=== PATIENT | female | born 1935 | race Caucasian/White ===

== ENCOUNTER 2016-10-24 08:49 | Observation (INO) | payer MEDICARE ==
[~2016-10-24] VITALS: Ht 160 cm; Wt 67.2 kg
[2016-10-24] VITALS (10 sets, daily range): BP systolic 119–186; BP diastolic 63–81; PULSE 64–80; RESP 14–18; O2SAT 93–98
[~2016-10-24 08:49] MED LIST: Aspirin-Expunged Drug, Do Not Renew! PO; DOCU-41 PO; HYDR-3797 PO; OXYC1TAB24 PO
--- NOTE | 2016-10-24 09:09 | ED.REPORT ---
HPI-Trauma Minor / Fall Date of Service Oct 24, 2016 ED Provider: Titus Melchor MD Pt is a healthy 81 y/o female presenting to the ED with her daughter due to mechanical ground level fall which occurred this morning. The patient was doing step aerobics and slipped causing her to fall backwards onto some weights on her left side mildly hitting her head. There were no preceding symptoms to the fall. Her complaints at this time include left rib pain, left hip pain, and mild left-sided headache. She describes her pain as a 5/10 non-radiating ache which is worse with movement and breathing. She denies change in LOC, fever, chills, neck pain, extremity pain, nausea, vomiting, abdominal pain, focal numbness/weakness, vision changes, chest pain, palpitations. She is unsure of her TDAP status. Nursing Notes Stated Complaint: HEAD INJURY Chief Complaint: Head, Face, Neck Trauma Nursing Notes Reviewed: Yes Allergies: Coded Allergies: No Known Drug Allergies (Verified Allergy, Unknown, 10/24/16) Scheduled Calcium Citrate (Calcium Citrate) 250 Mg Tablet 1,000 MG PO DAILY Cholecalciferol (Vitamin D3) (Vitamin D3) 2,000 Unit Capsule 2,000 UNIT PO DAILY Multivitamin (Once Daily) 1 Each Tablet 1 EACH PO DAILY Scheduled PRN diphenhydrAMINE HCl (Benadryl) 25 Mg Capsule 25 MG PO HS PRN PRN General Time Seen by MD: 09:01 Chief Complaint Fall Hx Obtained From: Patient Arrived By: Walk-in Onset Occurred: Just prior to arrival Symptom Duration: Since onset Caused by: Fall on ground Location: Chest Head Hip left Quality: Aching Severity: Current: Mild Severity: Maximum: Moderate Exacerbated by: Movement, Deep breath Context: Immunizations Tetanus not up to date (unknown) Recent Healthcare: No recent doctor visit, No recent hospitalization Similar Sx Previous: No Past Medical History Past Medical History None Past Surgical History Reports: Tonsillectomy Reports: Knee replacement Smoking History Never Smoker Social History Alcohol Use: "Social" Drug Use: Denies drug use Ambulatory Status Independent Review of Systems Constitutional: Denies: Chills, Fever Eyes: Denies: Blurred bilateral Ears / Nose / Throat: Denies: Sore throat Respiratory: Denies: Non-productive cough, Shortness of breath Musculoskeletal: Denies: Extremity pain Skin: Denies Itching Neurologic: Reports: Headache, Denies: Change LOC, Focal weakness, Numbness, Syncope Complete sys rev & neg: except as marked. Cardiovascular: Reports: Chest pain (rib) GI: Denies: Abdominal pain, Nausea, Vomiting Female: Denies: Dysuria Hematologic: Denies Bruising Endocrine: Denies: Polyuria Allergy / Immune: Denies: Itching Psychiatric: Denies: Change mental status Physical Exam General: Airway patent, GCS of 15 --- eyes (4), verbal (5), motor (6), NAD HEENT: Right eye normal with pupils 4-3 and briskly reactive Left eye normal with pupils 4-3 and briskly reactive Left tympanic membrane normal, right tympanic membrane normal Midface stable, no malocclusion No nasal septal hematoma 0.5 cm laceration to the left parietal scalp which is hemostatic Neck: nontender, trachea midline, c-collar in place Lungs: Clear to auscultation bilaterally, normal work of breathing Chest: Stable with tenderness to palpation of left lower aspect of ribs, no crepitus. No ecchymosis. Cardiac: Regular rate and rhythm Abdomen: Soft, diffuse left-sided abdominal tenderness, non-distended. No ecchymosis. Back: No bruising, tenderness, or step-offs : No saddle anesthesia Pelvis: Stable Skin: Warm and well perfused Extremities: Left upper extremity grossly normal, no deformity. Right upper extremity grossly normal, no deformity. Right lower extremity grossly normal, no deformity. Left lower extremity grossly normal, no deformity. Pulses: Palpable to bilateral upper and lower extremities Neuro: Motor and sensory exams grossly within normal limits; patient localizes to pain. Psych: Normal affect and mood Initial Vital Signs Vital Signs (First) Date Time Temp Pulse Resp B/P Pulse Ox O2 Delivery O2 Flow Rate FiO2 10/24/16 08:51 70 18 186/81 98 Room Air Initial VS: Reviewed Interpretation & Diagnostics Interpretation & Diagnostics: CT chest/abd/pelvis w/ contrast: IMPRESSION: 1. Mildly displaced fractures of the left 9th and 10th ribs and minimally displaced fracture of the 8th rib. 2. No evidence of pulmonary contusions, lacerations, or pneumothorax. No splenic lacerations. 5. Small nonspecific 5 mm groundglass nodule within the left upper lobe. If clinically indicated, follow evaluation may be performed in 6 months to demonstrate stability. Dictated by: Brodie Ferraro M.D. on 10/24/2016 at 11:03 Approved by: Brodie Ferraro M.D. on 10/24/2016 at 11:11 Lab Results Interpretation Result Diagram: 10/24/16 0922 10/24/16 0922 Test 10/24/16 09:05 10/24/16 09:22 Hold Vázquez Top Tube Received (Received) White Blood Count 6.3th/mm3 (3.8-10.1) Red Blood Count 5.00mil/mm3 (3.90-5.20) Hemoglobin 15.2g/dL (12.0-15.6) Hematocrit 45.4% (35.0-46.0) Mean Corpuscular Volume 90.8fL (81-100) Mean Corpuscular Hemoglobin 30.4pg (27.0-35.0) Mean Corpuscular Hemoglobin Concent 33.5% (32.0-37.0) Red Cell Distribution Width 13.5% (12.3-15.4) Platelet Count 152bil/L (150-400) Neutrophils (%) (Auto) 43.9% (40-74) Lymphocytes (%) (Auto) 45.0% (14-46) Monocytes (%) (Auto) 7.3% (4-12) Eosinophils (%) (Auto) 3.0% (0-5) Basophils (%) (Auto) 0.5% (0-3) Hematology Comments Prothrombin Time 10.0sec (8.1-12.5) Prothromb Time International Ratio 0.94ratio Activated Partial Thromboplast Time 19.7sec (22.8-33.0) Sodium Level 137mEq/L (134-144) Potassium Level 4.1mEq/L (3.5-5.2) Chloride Level 99mEq/L (97-108) Carbon Dioxide Level 24mmol/L (18-29) Blood Urea Nitrogen 15mg/dL (8-27) Creatinine 0.79mg/dL (0.57-1.00) Estimat Glomerular Filtration Rate 100mL/min (>59) Glucose Level 128mg/dL (60-99) Calcium Level 8.7mg/dL (8.5-10.1) Magnesium Level 1.9mg/dL (1.6-2.6) Total Bilirubin 0.5mg/dL (0.0-1.2) Aspartate Amino Transf (AST/SGOT) 24U/L (0-50) Alanine Aminotransferase (ALT/SGPT) 15U/L (0-32) Alkaline Phosphatase 78U/L (25-165) Total Protein 7.5g/dL (6.4-8.4) Albumin 4.4g/dL (3.4-5.0) Lipase 18U/L (13-60) Thyroid Stimulating Hormone (TSH) 2.560uIU/mL (0.450-4.500) Alcohols < 10mg/dL (0-10) ECG Interpretation ECG Interpretation: Sinus rhythm rate 61 Biphasic T waves V1 and V2 not diagnostic but 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 No acute intracranial abnormality. 2. Mild chronic white matter small vessel ischemic changes and cerebral volume loss. Dictated by: Brodie Ferraro M.D. on 10/24/2016 at 10:58 Approved by: Brodie Ferraro M.D. on 10/24/2016 at 11:00 Study: Head CT no contrast Interpretation / Wet Read by: Interpret - Radiologist CT C-Spine Interpretation IMPRESSION: 1. No fracture or subluxation. 2. Multilevel degenerative changes including moderate to severe degenerative disc disease as described. 3. Mild multilevel spondylolisthesis likely degenerative in etiology. Dictated by: Brodie Ferraro M.D. on 10/24/2016 at 11:00 Approved by: Brodie Ferraro M.D. on 10/24/2016 at 11:02 Study type: CT no contrast Interpretation / Wet Read by: Interpret - Radiologist Re-Eval/Medical Decision Med Decision/Clinical Course In summary, 81-year-old female presenting to the ED after an apparent mechanical fall earlier today. She was evaluated upon arrival. Primary and secondary survey performed, notable only for a small laceration to her scalp, currently hemostatic and without need for repair at this time, as well as left- sided chest wall tenderness. CT scans of the patient's head and cervical spine were negative for acute abnormality. CT of the patient's chest, abdomen, and pelvis demonstrate 3 rib fractures on the left, 2 of which are mildly displaced , however no evidence of pulmonary contusion, nor splenic lacerations. She did have a small, nonspecific, 5 mm groundglass nodule in the left upper lobe. She did not have any other injuries or complaints. She was not having any palpitations or chest pain prior to the fall and seems to indicate that it was a clear mechanical etiology. She states that she has no medical problems. Her EKG here did demonstrate some concerning findings with biphasic T waves in V1 and V2; her previous EKG demonstrates a left bundle branch block, however this is not present at this time. Given biphasic T waves, I am concerned that this may represent a Wellens syndrome, however it could also be a normal variant. Having said that, given the possible morbidity of a LAD lesion, cardiology was consulted; appreciate recommendations. Dr. Valente agreed that in the setting of her age and change from previous, as well as her fall this morning, she should likely have a echocardiogram and stress test. Laboratory studies here all grossly within normal limits including a negative troponin. Plan admission for further management and evaluation. I discussed the above with the patient at length. She was agreeable to the plan as stated and denied further questions. Source of Hx: Old records Re-Evaluation/Progress : Time of Eval: 11:42 Re-Evaluation/Progress Note: Pt rechecked. Informed pt of need for admission. Pt understands and agrees with plan for admission. All questions addressed. Consultation #1: Referral / Consult Name: Joseph Valente MD Consulted With: Cardiology Call Returned at: 10:04 Helper Maintenance Cleaning: Agrees with eval, Agrees with plan Note: Discussed EKG. Agrees that EKG is concerning. Needs to be admitted regardless of workup. Recommends medical management, likely stress test tomorrow. Consultation #2: Referral / Consult Name: Momo Lundberg MD Consulted With: Hospitalist Call Returned at: 12:35 Helper Maintenance Cleaning: Will see patient, Agrees with eval, Agrees with plan, Accepts admit Counseled Regarding: Diagnosis, Lab results, Need for admission Discharge & Departure Impression: Primary Impression: Fall Encounter type: initial encounter Qualified Code: W19.XXXA - Unspecified fall, initial encounter Additional Impressions: Biphasic anterior T wave inversion Fracture of three ribs of left side Encounter type: initial encounter Fracture type: closed Qualified Code: S22.42XA - Multiple fractures of ribs, left side, initial encounter for closed fracture Minor head injury Encounter type: initial encounter Qualified Code: S00.90XA - Unspecified superficial injury of unspecified part of head, initial encounter Scalp laceration Encounter type: initial encounter Qualified Code: S01.01XA - Laceration without foreign body of scalp, initial encounter Disposition: ADMITTED TO HOSPITAL Discharge Condition All VS Reviewed: Yes Condition: Stable Referrals: Yuniel Garcia MD (PCP) Scribe Attestation Portions of this note were transcribed by Jourdan Stern. I, Dr. Melchor personally performed the history, physical exam and medical decision-making; I reviewed and confirmed the accuracy of the information in the transcribed note. copies to: Yuniel Garcia MD, William B MD Oct 24, 2016 09:09 JOURDAN STERN Oct 24, 2016 09:16
[2016-10-24] MEDS ORDERED: Ondansetron 2 mg/mL 2 mL Inj IVPUSH ONE (09:20)
[2016-10-24] MEDS ORDERED: TdaP Vaccine 0.5 mL Inj IM ONE (09:25)
[2016-10-24] MEDS: HYDROmorphone 0.5 mg/0.5 mL iSecure Syringe IVPUSH PRN ×4 (09:26→12:03)
[2016-10-24 09:32] LABS: INR 0.94 ratio
[2016-10-24 09:50] LABS: Magnesium 1.9 mg/dL (1.6-2.6)
[2016-10-24 10:03] LABS: BASOPHILS % (AUTO) 0.5 % (0-3); MONOCYTES % (AUTO) 7.3 % (4-12); Mean Corpuscular Hemoglobin 30.4 pg (27.0-35.0); Mean Corpuscular Volume 90.8 fL (81-100); NEUTROPHILS % (AUTO) 43.9 % (40-74); Platelet Count 152 bil/L (150-400)
[2016-10-24 10:30] LABS: Lipase 18 U/L (13-60)
--- NOTE | 2016-10-24 11:01 | DRSVH ---
PROCEDURE: CT BRAIN WITHOUT CONTRAST ([id number]) INDICATIONS: fall onto side TECHNIQUE: Noncontrast 4.5 mm thick angled axial sections acquired from the foramen magnum to the vertex, with c oronal reformats. COMPARISON: None. FINDINGS: Image quality: Excellent. CSF spaces: Basal cisterns are patent. No extra-axial fluid collections. The ventricles are symmet kym in size and shape. There is mild cerebral volume loss, with resultant ventricular and sulcal pro minence. Brain: No intracranial hemorrhage, mass, or mass effect. There are subcortical, periventricular and deep white matter hypodensities consistent with mild chronic small vessel ischemic changes. There i s intracranial internal carotid artery atherosclerosis. Skull and face: Calvarium and visualized facial bones appear intact, without suspicious lesions. Sinuses: Visualized sinuses and mastoids are clear. IMPRESSION: 1. No acute intracranial abnormality. 2. Mild chronic white matter small vessel ischemic changes and cerebral volume loss. Dictated by: Brodie Ferraro M.D. on 10/24/2016 at 10:58 Approved by: Brodie Ferraro M.D. on 10/24/2016 at 11:00
--- NOTE | 2016-10-24 11:04 | DRSVH ---
PROCEDURE: CT CERVICAL SPINE WITHOUT CONTRAST ([id number]) INDICATIONS: fall onto side TECHNIQUE: Noncontrast 3 mm thick sections acquired from the skull base to the T4 level. Sagittal and coronal r eformats were then constructed. For radiation dose reduction, the following was used: automated exp osure control, adjustment of mA and/or kV according to patient size. COMPARISON: None. FINDINGS: Image quality: Excellent. Bones: No fractures or dislocations. There is minimal anterolisthesis at C2-C3, C3-C4 and C7-T1. T here is also minimal retrolisthesis at C4-C5. Findings are likely degenerative in etiology. There i s multilevel disc space narrowing including moderate to severe narrowing at C4-C5, C5-C6, and C6-C7 w ith endplate sclerosis and osteophytosis. There is also multilevel facet joint arthropathy and uncov ertebral joint arthropathy. There is a mild leftward curvature of the cervicothoracic spine. Visual ized superior ribs are intact. Soft tissues: Prevertebral soft tissues are normal in thickness. No paravertebral hematomas. No ap ical pneumothoraces. IMPRESSION: 1. No fracture or subluxation. 2. Multilevel degenerative changes including moderate to severe degenerative disc disease as describ ed. 3. Mild multilevel spondylolisthesis likely degenerative in etiology. Dictated by: Brodie Ferraro M.D. on 10/24/2016 at 11:00 Approved by: Brodie Ferraro M.D. on 10/24/2016 at 11:02
--- NOTE | 2016-10-24 11:13 | DRSVH ---
PROCEDURE: CT CHEST, ABDOMEN AND PELVIS WITH CONTRAST ([id number]) INDICATIONS: fall onto side, marked rib, abd pain on L TECHNIQUE: After the administration of intravenous contrast, 5 mm thick sections acquired from the lung apices t o the symphysis. 5 mm thick coronal and sagittal reformats were acquired. Additional 7 mm thick cor onal maximum intensity projection (MIP) reformats acquired through the lungs. Optional 10-minute del ayed imaging may be performed from the kidneys to the bladder. For radiation dose reduction, the fol lowing was used: automated exposure control, adjustment of mA and/or kV according to patient size. COMPARISON: None. FINDINGS: Image quality: Excellent. CHEST: Lungs: No pulmonary contusions or lacerations. There is mild dependent atelectasis bilaterally as w ell as bilateral areas of scarring in the lung bases and apices. There is a small groundglass nodule in the left upper lobe peripherally measuring 5 mm on series 5 image 16. No pneumothorax or hemotho rax. Central and peripheral airways appear patent and normal in caliber. Mediastinum: No mediastinal hematomas. Heart size is at the upper limits of normal. No pericardial effusion. Thoracic aorta and pulmonary arteries demonstrate normal size and enhancement. No medias tinal or hilar adenopathy. Esophagus is normal in caliber. There is a small hiatal hernia. Chest wall: No rib fractures. No subcutaneous emphysema. No axillary or supraclavicular adenopathy . ABDOMEN: Solid organs: Liver and spleen are normal in size and enhancement, without lacerations. There is a cyst in the left hepatic lobe. Gallbladder appears within normal limits without calcified gallstones . Biliary system is non-dilated. Pancreas enhances normally, without transection. There are small nonspecific bilateral adrenal nodules measuring up to 1.5 cm on the right. Kidneys demonstrate bilat eral parapelvic renal cysts without hydronephrosis. Peritoneum and bowel: No free fluid or air. Unenhanced bowel loops demonstrate normal wall thicknes s and caliber. There is gaseous dilatation of the appendix distally, measuring up to 11 mm without w all thickening or patria-appendiceal fat stranding to suggest acute appendicitis. Nodes and vessels: No retroperitoneal or mesenteric adenopathy. Aorta and inferior vena cava are no rmal in size and enhancement. Miscellaneous: No ventral hernias. PELVIS: Genitourinary: Bladder wall thickness is normal. There are calcified fibroids within the uterus. Miscellaneous: No inguinal hernias or adenopathy. Bones: There are mildly displaced fractures of the left 9th and 10th ribs laterally. There is also a minimally displaced fracture of the left 8th rib. Pelvic ring and hip joints appear intact. No ve rtebral compression fractures. IMPRESSION: 1. Mildly displaced fractures of the left 9th and 10th ribs and minimally displaced fracture of the 8th rib. 2. No evidence of pulmonary contusions, lacerations, or pneumothorax. No splenic lacerations. 5. Small nonspecific 5 mm groundglass nodule within the left upper lobe. If clinically indicated, f ollow evaluation may be performed in 6 months to demonstrate stability. Dictated by: Brodie Ferraro M.D. on 10/24/2016 at 11:03 Approved by: Brodie Ferraro M.D. on 10/24/2016 at 11:11
[2016-10-24] MEDS ORDERED: HYDROmorphone 1 mg/mL Inj IVPUSH ONE (12:05)
[2016-10-24] MEDS ORDERED: Polyethylene Glycol (PEG) 17 Gm Powder PO PRN (13:10)
[2016-10-24] MEDS ORDERED: Ondansetron 2 mg/mL 2 mL Inj IVPUSH PRN (13:10)
[2016-10-24] MEDS ORDERED: Alum-Mag Hydrox-Simeth 30 mL Suspension PO PRN (13:10)
[2016-10-24] MEDS ORDERED: CHOL200047 PO (14:38)
[2016-10-24] MEDS ORDERED: DIPH25CA6 PO (14:38)
[2016-10-24] MEDS ORDERED: MULT-666 PO (14:38)
[2016-10-24] MEDS ORDERED: CALCIT PO (14:38)
--- NOTE | 2016-10-24 15:41 | PCM.HPMED ---
Subjective Date of Service Oct 24, 2016 Primary Provider: Admitting Physician: Momo Lundberg MD Primary Care Physician: Yuniel Garcia MD Attending Physician: Momo Lundberg MD Admit Status: From the Emergency Department, 23-Hour Observation Chief Complaint: ground level fall/2 hrs History of Present Illness: 81 year old pleasant lady with no significant medical history came in due to ground level fall of 2 hrs. She states she went to Gym and was doing step aerobics .She slipped and fell back and left wards . She also hit a bar with her head and left chest when she fell. She had some bleeding from scalp laceration.She also has left pleuritic pain after the fall . no lightheadedness ,chest pain,or diaphoresis prior to fall . She is physically active and goes to gym daily,and do some works in her back yard.no chest pain or dyspnea on exertion. Fall is mechanical per patient no home meds ED course : CT brain,cervical spine ,chest/abd/pelvis done shows mildly displaced fractures of the left 9th and 10th ribs and minimally displaced fracture of the 8th rib.pain meds given EKG sinus rythm with biphasic T waves in V1 and V2 ,prior LBBB no seen on 12 lead. there was initial concern for Wellens syndrome , she also had runs of of wide complex rythm on monitor .cardiology consulted and upon closer look and discussion video editing intern it seems she is having rate dependent runs of LBBB . Cardiology recommended observation, echocardiogram and stress test Review of Systems: Comprehensive review of systems performed, pertinent positives and negatives included in history of present illness Allergies Coded Allergies: No Known Drug Allergies (Verified Allergy, Unknown, 10/24/16) Home Medications no home meds PMH non significant Surgical History Tonsillectomy Left Knee replacement,initially partial then full due to fracture Family History reviewed and unremarkable Social History Hx Alcohol Use: Yes ("Every Day") Hx Substance Use: No Hx Tobacco Use: No Smoking Status: Never Smoker Exam Vital Signs Vital Sign - Last Date Time Temp Pulse Resp B/P Pulse Ox O2 Delivery O2 Flow Rate FiO2 10/24/16 13:33 65 15 133/75 96 Room Air Exam Gen. patient is lying comfortably in hospital bed HEENT: Head is normocephalic atraumatic, Pupils equal and reactive, extraocular movements intact, .0.5cm left parietal laceration Lungs clear to auscultation bilaterally. Tenderness on the left lower chest Heart regular rate and rhythm without murmurs gallops or rubs Abdomen soft nontender without hepatosplenomegaly Extremities pulses are present dorsalis pedis posterior tibialis and radial. tSkin is warm and dry there are no rashes, Psych alert and oriented to person place and time Neuro cranial nerves II through XII are grossly intact Lymph: There is no lymphadenopathy appreciated in the cervical supra infraclavicular regions : no latif Lab and Diagnostics Result Diagram: 10/24/1692110/24/16921 X-Rays, CTs and MRIs PROCEDURE: CT CERVICAL SPINE WITHOUT CONTRAST ([id number]) INDICATIONS: fall onto side IMPRESSION: 1. No fracture or subluxation. 2. Multilevel degenerative changes including moderate to severe degenerative disc disease as described. 3. Mild multilevel spondylolisthesis likely degenerative in etiology. Dictated by: Brodie Ferraro M.D. on 10/24/2016 at 11:00 PROCEDURE: CT BRAIN WITHOUT CONTRAST ([id number]) INDICATIONS: fall onto side IMPRESSION: 1. No acute intracranial abnormality. 2. Mild chronic white matter small vessel ischemic changes and cerebral volume loss. Dictated by: Brodie Ferraro M.D. on 10/24/2016 at 10:58 PROCEDURE: CT CHEST, ABDOMEN AND PELVIS WITH CONTRAST ([id number]) INDICATIONS: fall onto side, marked rib, abd pain on L IMPRESSION: 1. Mildly displaced fractures of the left 9th and 10th ribs and minimally displaced fracture of the 8th rib. 2. No evidence of pulmonary contusions, lacerations, or pneumothorax. No splenic lacerations. 5. Small nonspecific 5 mm groundglass nodule within the left upper lobe. If clinically indicated, follow evaluation may be performed in 6 months to demonstrate stability. Dictated by: Brodie Ferraro M.D. on 10/24/2016 at 11:03 Cardiac Echo Impressions sinus rythm with biphasic T waves in V1 and V2 ,prior LBBB no seen . rate dependent runs of LBBB on monitor Assessment & Plan 81 year old pleasant lady with no significant medical history came in due to ground level fall of 2 hrs. # Mechanical ground-level fall,acute,poa -fall mechanical and no further workup needed # rib fracture,poa,acute -left 8-10th rib fracture -pain control with morphine IV -incentive spirometry given # Abnormal EKG -Initial EKG sinus rythm with biphasic T waves in V1 and V2 ,prior LBBB no seen on 12 lead. there was initial concern for Wellens syndrome , she also had runs of of wide complex rythm on monitor .cardiology consulted and upon closer look and discussion with video editing intern Dr Valente it seems she is having rate related runs of LBBB .LBBB appearing at rates >80. will do echocardiogram and stress test per cardiology -Telemetry DNR/DNI per patient names her son,daughter and granddaughter as DPOA Resuscitation Status: DNR/DNI:Do Not Resuscitate/Intubate copies to: Yuniel Garcia MD, Melaku MD Oct 24, 2016 15:41
--- NOTE | 2016-10-24 16:17 | DRSVH ---
[facility] [address] [place] [address] Echocardiogram Report Name: DIANA CALDERON LStudy Date: 10/24/2016 Height: 63 in Hospital Exam Location: [facility] Weight: 145 lb Gender: Female BSA: 1.7 m2 : 1935 Age: 81 yrs BP: 156/71 mm Hg Reason For Study: Arrhythmia Ordering Physician: Felipe Cyr Performed By: August Hernandez Referring Physician: Dr. Yuniel Garcia Interpretation Summary 1) Mild concentric left ventricular hypertrophy with small size and normal systolic function (EF 65-70%). 2) Normal right ventricular size and function. 3) Mild aortic stenosis (mean gradient 12mmHg, valve area 1.7cm2). 4) Hypertension present during the study (BP 156/71). 5) No prior Echo available for comparison. Procedure: A two-dimensional transthoracic echocardiogram with color flow and Doppler was performed. The study quality was technically adequate. There is no prior echocardiogram noted for this patient. Patient supine for exam due to rib fractures and limited mobility. The heart rate ranged between 70 bpm during the study. Left Ventricle: There is mild concentric left ventricular hypertrophy. The left ventricular cavity is small. There is no echo evidence for significant left ventricular outflow tract obstruction. The ejection fraction is estimated to be 65-70%. There is a mild dyssynchronous contraction pattern, consistent with a conduction abnormality. Right Ventricle: The right ventricle is normal in size and function. Atria: The left atrial size is normal. The right atrium is normal in size. The interatrial septum is intact with no evidence for an atrial septal defect. Mitral Valve: The mitral valve leaflets are mildly calcified. There is no mitral regurgitation noted. Aortic Valve: The aortic valve opens well. There is mild aortic stenosis. The peak aortic velocity is 2.23 m/sec. The aortic valve mean gradient is 12 mmHg. The calculated aortic valve area is 1.7 cm2. The aortic valve area indexed to the BSA is 1.0 . There is trace aortic regurgitation. Tricuspid Valve: The tricuspid valve is normal. There is trace tricuspid regurgitation. The right ventricular systolic pressure is estimated at 26 mmHg assuming a right atrial pressure of 3 mm Hg. Pulmonic Valve: The pulmonic valve is not well visualized. There is trace pulmonic regurgitation. Great Vessels: The aortic root is normal size. The dimensions of the ascending aorta are normal. The aortic arch is normal in size. The pulmonary artery is normal size. The IVC is of normal diameter and collapses greater than 50% with a sniff. This suggests a low right atrial pressure of 3 mm Hg. Pericardium/ Pleura There is no pericardial effusion. There is no pleural effusion. MMode/2D Measurements & Calculations LVIDd: 3.7 cm RA long axis LVOT diam: 1.9 cm LVIDs: 2.7 cm LA A2 area: 14.3 cm AoV Opening FS: 25.6 % LA A4 area: 17.8 cm RA area EPSS: 0.68 cm LA length (vol) Ao root diam IVSd: 1.2 cm : 16.3 cm LVPWd: 1.2 cm LA vol: 46.1 ml RA vol asc Aorta Diam LA vol index : 45.9 ml RA Ao Arch Diam (Prox : 27.3 ml/m2 : 27.2 mm2 Trans): 2.8 cm LV aleman. diameter/BSA LV sys. diameter/BSA RVD1 (basal) TAPSE: 2.6 cm (cm/m^2): 2.2 (cm/m^2): 1.6 Doppler Measurements & Calculations Ao V2 max MV E max ruben MV E/A: 0.63 TR max ruben : 223.3 cm/sec : 65.2 cm/sec : 253.4 cm/sec Ao max PG MV A max ruben TR max PG : 19.9 mmHg : 104.0 cm/sec : 23.4 mmHg Ao mean PG MV P1/2t: 119.4 msec PA V2 max : 12.0 mmHg : 71.1 cm/sec LVOT Max Ruben PA mean PG : 122.6 cm/sec : 0.95 mmHg PIO(I,D): 1.7 cm sev ratio MV dec time MV P1/2t max ruben Ao V2 mean LV V1 max PG : 0.40 sec : 166.5 cm/sec MVA(P1/2t): 1.8 cm2 Ao V2 VTI LV V1 VTI : 29.8 cm PIO(V,D): 1.6 cm2 PA V2 mean PIO indexed to BSA : 45.2 cm/sec (cm^2/m^2): 1.0 PA pr(Accel) : 26.1 mmHg Reading Physician:04:16 PM
[2016-10-24] MEDS ORDERED: diphenhydrAMINE 25 mg Capsule PO PRN (16:35)
--- NOTE | 2016-10-24 17:06 | PCM.CHPCAR ---
Consult Subjective Date of service Oct 24, 2016 Date of admit Oct 24, 2016 at 13:16 Provider Requesting Consult Requesting Provider: Momo Lundberg MD Primary Care Physician Primary Care Physician: Yuniel Garcia MD Chief Complaint Mechanical fall, EKG changes History of Present Illness 81yoF with no past medical history presents to the ED following a mechanical ground-level fall which occurred this morning. Patient was doing step aerobics and slipped, which caused her to fall backwards onto some weights and strike the left side of her head and right chest. She denies any preceding symptoms to the event, and denies any substernal chest pain, shortness of breath, lightheadedness, loss of consciousness, palpitations, or any other symptoms. She states she has been in her usual state of health. She does report left head pain in the area of her left head laceration, and left-sided rib and hip pain where she fell. On admission, EKG showed left ventricular hypertrophy, sinus rhythm with a rate of 61 with biphasic T waves in leads V1 and V2. In comparison, old EKGs showed a left bundle-branch block. CT of the chest abdomen and pelvis with contrast showed fractures of the eighth to 10th ribs. CT head showed no acute bleed. Echo showed mild concentric LVH with EF 65-70%, mild aortic stenosis. PROBLEM LIST: # Wellen's sign - biphasic T-waves in V1-V2 # Rate related LBBB # Noncardiac chest pain # Mild aortic stenosis Review of Systems Review of Systems Comprehensive review of systems conducted and was negative except for the pertinent positives listed above. PMH Past Medical History None Past Surgical History Tonsillectomy Knee replacement Scheduled Calcium Citrate (Calcium Citrate) 250 Mg Tablet 1,000 MG PO DAILY (Reported) Cholecalciferol (Vitamin D3) (Vitamin D3) 2,000 Unit Capsule 2,000 UNIT PO DAILY (Reported) Multivitamin (Once Daily) 1 Each Tablet 1 EACH PO DAILY (Reported) Scheduled PRN diphenhydrAMINE HCl (Benadryl) 25 Mg Capsule 25 MG PO HS PRN PRN (Reported) Discontinued Medications ([Aspirin-Expunged Drug, Do Not Renew!]) 325 MG TABLET 325 MG PO BID Docusate Sodium (Colace) 100 Mg Capsule 100 MG PO BID Hydroxyzine Pamoate (HydrOXYzine Pamoate) 25 Mg Capsule 25-50 MG PO Q4H PRN PRN For Restlessness oxyCODONE-Acetaminophen 5-325 mg (oxyCODONE-Acetaminophen 5-325 mg) 1 Tab Tablet 1-2 TAB PO Q4-6H PRN PRN For Severe Pain Current Inpatient Medications Current Medications Hydromorphone HCl 0.5 mg Q15MIN PRN IVPUSH Last administered on 10/24/16 12:03 ; Admin Dose 0.5 MG; Start 10/24/16 at 09:20; Stop 10/24/16 at 13:24; Status DC Al Hydrox/Mg Hydrox/Simethicone 30 ml Q6H PRN PO; Start 10/24/16 at 13:10 Ondansetron HCl 4 to 8 mg Q4H PRN IVPUSH; Start 10/24/16 at 13:10 Senna 17.2 mg BID PRN PO; Start 10/24/16 at 13:10 Polyethylene Glycol 17 gm DAILY PRN PO; Start 10/24/16 at 13:10 Aspirin 81 mg DAILY PO Last administered on 10/24/16 16:22; Admin Dose 81 MG; Start 10/24/16 at 13:10 Atorvastatin Calcium 40 mg HS PO; Start 10/24/16 at 21:00 Morphine Sulfate 2-4MG Q3H PRN IVPUSH; Start 10/24/16 at 16:15; Stop 10/24/16 at 16:15; Status DC Morphine Sulfate 2-4MG Q3H PRN IVPUSH Last administered on 10/24/16 16:21; Admin Dose 2 MG; Start 10/24/16 at 16:14 Allergies: Coded Allergies: No Known Drug Allergies (Verified Allergy, Unknown, 10/24/16) Family History Family History Mother: COPD (smoker) Father: Stroke, TIA Sister: Lung cancer (smoker) Social History Hx Alcohol Use: Yes ("Every Day")Hx Substance Use: NoHx Tobacco Use: No Smoking Status: Never Smoker (with lifelong secondary smoke exposure) Exam Vital Signs Vital Sign - Last Date Time Temp Pulse Resp B/P Pulse Ox O2 Delivery O2 Flow Rate FiO2 10/24/16 15:47 36.7 68 18 151/71 93 Room Air Objective General appearance: No apparent distress, well-nourished, pleasant, cooperative HEET: Left head laceration, no scleral icterus, tongue midline, mucous membranes moist Neck: supple Cardiovascular: RRR, systolic ejection murmur noted, PMI nondisplaced, no JVD, no peripheral edema Respiratory: Good aeration, clear to auscultation bilaterally Abdomen: Soft, nontender, nondistended, + bowel sounds. Right rib tenderness. Neuro: Alert, no facial droop, tongue midline Psych: Appropriate affect Skin: No rashes on face, neck, and lower extremities Lab and Diagnostics Result Diagram: 10/24/1692110/24/16921 Assessment & Plan Assessment # Anteroseptal T-wave inversions that could be Wellen's sign or normal variant: Pt presents asymptomatic with exertion but did have a mechanical fall today. Troponins are negative, making PA unlikely. - Trend troponin - Monitor on telemetry - Nuclear stress test tomorrow # Rate related LBBB: Pt has a history of prior LBBB, rate-related. Echo today shows normal LV function - Stress test to rule out ischemia. # Hypertension: Patient was hypertensive in the ED with blood pressure of 186/81 , likely secondary to acute pain. Improve to 130s but was in the 150s during echocardiogram. Since Echo shows mild LVH, I suspect there is a component of chronic hypertension. - Continue to monitor blood pressures - Start MELVI inhibitor/ARB if blood pressure is consistently elevated (ex. valsartan 80mg qhs) # Mild aortic stenosis: Currently asymptomatic. - Recommend follow-up echo in 3-5 years. # Noncardiac chest pain: Patient reports left rib pain due to multiple rib fractures. Resuscitation Status: DNR/DNI:Do Not Resuscitate/Intubate Attending Statement ATTENDING ADDENDUM: I saw, examined, and evaluated the patient with Dr. Marek José on 10/24/2016 and agree with the note as above along with my edits. Marek José Oct 24, 2016 16:29 Joseph Valente MD Oct 24, 2016 17:18
[2016-10-24 22:09] LABS: APPEARANCE,URINE CLEAR (CLEAR,HAZY); COLOR,URINE YELLOW (YELLOW); OCCULT BLOOD,URINE NEGATIVE (NEGATIVE); UROBILINOGEN,URINE NORMAL (NORMAL)
[2016-10-25] VITALS (7 sets, daily range): BP systolic 126–151; BP diastolic 63–75; PULSE 56–86; RESP 18; O2SAT 92–95
[2016-10-25 06:26] LABS: BASOPHILS % (AUTO) 0.5 % (0-3); EOSINOPHILS % (AUTO) 2.7 % (0-5); MONOCYTES % (AUTO) 9.9 % (4-12); Mean Corpuscular Hemoglobin 30.5 pg (27.0-35.0); Mean Corpuscular Volume 92.7 fL (81-100); NEUTROPHILS % (AUTO) 57.7 % (40-74); Platelet Count 161 bil/L (150-400)
[2016-10-25 06:47] LABS: Magnesium 1.9 mg/dL (1.6-2.6)
[2016-10-25] MEDS ORDERED: oxyCODONE-Acetamin 5-325 mg Tablet PO PRN (11:40)
--- NOTE | 2016-10-25 14:42 | PCM.DIMED ---
Discharge Instructions Date of Service Oct 25, 2016 Dates of Hospitalization Oct 24, 2016 at 13:16 Discharge Diagnosis Discharge Diagnosis # Mechanical ground-level fall,acute,poa # rib fracture,poa,acute # Abnormal EKG/ eventually diagnosed as rate related LBBB Diet Discharge Diet: No restrictions Activity Discharge Activity: Limited until seen by PCP Call your provider Call your provider for: Fever or Chills, Shortness of breath, Bleeding, Chest pain, Vomitting, Excessive diarrhea, Weakness (unilateral) Patient Instructions Patient Instructions You were hospitalized due to mechanical fall. You have sustained left sided 8- 10th rib fracture. Please continue pain medications and using incentive spirometry as instructed. You also had abnormal EKG and emergency room. Echocardiogram and stress test unremarkable. Please follow-up with PCP in 1-2 weeks. Follow-up Provider: Yuniel Garcia MD Follow-up with PCP in: 2 weeks Momo Lundberg MD Oct 25, 2016 14:42
[2016-10-25] MEDS ORDERED: OXYC1TAB24 PO (14:44)
--- NOTE | 2016-10-25 16:13 | PCM.DC.MED ---
Discharge Summary Date of Service Oct 25, 2016 Dates of Hospitalization Date of Hospital Admission Oct 24, 2016 at 13:16 Date of Discharge: Oct 25, 2016 Providers: Admitting Physician: Momo Hester MD Primary Care Physician: Yuniel Garcia MD Attending Physician: Momo Hester MD Diagnosis at Time of Discharge Diagnosis at Time of Discharge # Mechanical ground-level fall,acute,poa # rib fracture,poa,acute # Abnormal EKG/ eventually diagnosed as rate related LBBB Consultations Cardiology Dr. Valente Procedures XRay, CTs & MRIs PROCEDURE: CT CERVICAL SPINE WITHOUT CONTRAST ([id number]) INDICATIONS: fall onto side IMPRESSION: 1. No fracture or subluxation. 2. Multilevel degenerative changes including moderate to severe degenerative disc disease as described. 3. Mild multilevel spondylolisthesis likely degenerative in etiology. Dictated by: Brodie Ferraro M.D. on 10/24/2016 at 11:00 PROCEDURE: CT BRAIN WITHOUT CONTRAST ([id number]) INDICATIONS: fall onto side IMPRESSION: 1. No acute intracranial abnormality. 2. Mild chronic white matter small vessel ischemic changes and cerebral volume loss. Dictated by: Brodie Ferraro M.D. on 10/24/2016 at 10:58 PROCEDURE: CT CHEST, ABDOMEN AND PELVIS WITH CONTRAST ([id number]) INDICATIONS: fall onto side, marked rib, abd pain on L IMPRESSION: 1. Mildly displaced fractures of the left 9th and 10th ribs and minimally displaced fracture of the 8th rib. 2. No evidence of pulmonary contusions, lacerations, or pneumothorax. No splenic lacerations. 5. Small nonspecific 5 mm groundglass nodule within the left upper lobe. If clinically indicated, follow evaluation may be performed in 6 months to demonstrate stability. Dictated by: Brodie Ferraro M.D. on 10/24/2016 at 11:03 ECG 12 Lead sinus rythm with biphasic T waves in V1 and V2 ,prior LBBB no seen . rate dependent runs of LBBB on monitor Cardiac Echo Impression ECHO 10/24/16 Interpretation Summary 1) Mild concentric left ventricular hypertrophy with small size and normal systolic function (EF 65-70%). 2) Normal right ventricular size and function. 3) Mild aortic stenosis (mean gradient 12mmHg, valve area 1.7cm2). 4) Hypertension present during the study (BP 156/71). 5) No prior Echo available for comparison. Other Diagnostics STRESS TEST 10/25/16 NORMAL Brief History per HPI 81 year old pleasant lady with no significant medical history came in due to ground level fall of 2 hrs. She states she went to Gym and was doing step aerobics .She slipped and fell back and left wards . She also hit a bar with her head and left chest when she fell. She had some bleeding from scalp laceration.She also has left pleuritic pain after the fall . no lightheadedness ,chest pain,or diaphoresis prior to fall . She is physically active and goes to gym daily,and do some works in her back yard.no chest pain or dyspnea on exertion. Fall is mechanical per patient no home meds ED course : CT brain,cervical spine ,chest/abd/pelvis done shows mildly displaced fractures of the left 9th and 10th ribs and minimally displaced fracture of the 8th rib.pain meds given EKG sinus rythm with biphasic T waves in V1 and V2 ,prior LBBB no seen on 12 lead. there was initial concern for Wellens syndrome , she also had runs of of wide complex rythm on monitor .cardiology consulted and upon closer look and discussion finish grinder it seems she is having rate dependent runs of LBBB . Cardiology recommended observation, echocardiogram and stress test Hospital Course 81 year old pleasant lady with no significant medical history came in due to ground level fall of 2 hrs. # Mechanical ground-level fall,acute,poa -fall mechanical and no further workup needed # rib fracture,poa,acute -left 8-10th rib fracture -pain control with Percocet. -incentive spirometry given. Advised patient to continue using it at home. # Abnormal EKG -Initial EKG sinus rythm with biphasic T waves in V1 and V2 ,prior LBBB no seen on 12 lead. there was initial concern for Wellens syndrome , she also had runs of of wide complex rythm on monitor .cardiology consulted and upon closer look and discussion with finish grinder Dr Valente it seems she is having rate related runs of LBBB .LBBB appearing at rates >80. echocardiogram and stress test unremarkable DNR/DNI per patient names her son,daughter and granddaughter as DPOA Discharged home Condition on discharge stable. Exam Vital Signs (Last) Date Time Temp Pulse Resp B/P Pulse Ox O2 Delivery O2 Flow Rate FiO2 9/1/17 13:45 36.6 76 18 132/75 95 Room Air Exam Gen. patient is lying comfortably in hospital bed HEENT: Head is normocephalic atraumatic, Pupils equal and reactive, extraocular movements intact, .0.5cm left parietal laceration Lungs clear to auscultation bilaterally. Tenderness on the left lower chest Heart regular rate and rhythm without murmurs gallops or rubs Abdomen soft nontender without hepatosplenomegaly Extremities pulses are present dorsalis pedis posterior tibialis and radial. Skin is warm and dry there are no rashes, Psych alert and oriented to person place and time Neuro cranial nerves II through XII are grossly intact Lymph: There is no l Test 10/24/16 09:05 10/24/16 09:22 10/24/16 16:34 10/24/16 21:55 Hold Vázquez Top Tube Received (Received) Hematology Comments Prothrombin Time 10.0sec (8.1-12.5) Prothromb Time International Ratio 0.94ratio Activated Partial Thromboplast Time 19.7sec (22.8-33.0) Lipase 18U/L (13-60) Thyroid Stimulating Hormone (TSH) 2.560uIU/mL (0.450-4.500) Alcohols < 10mg/dL (0-10) Troponin T < 0.010ug/L (0.0-0.011) Urine Color Yellow (YELLOW) Urine Appearance Clear (CLEAR,HAZY) Urine pH 7.0 (5.0-8.0) Urine Specific [place] 1.010 (1.003-1.035) Urine Protein Negativemg/dL (NEG,TRACE) Urine Glucose (UA) Negativemg/dL (NEGATIVE) Urine Ketones Negativemg/dL (NEGATIVE) Urine Occult Blood Negative (NEGATIVE) Urine Nitrite Negative (NEGATIVE) Urine Bilirubin Negative (NEGATIVE) Urine Urobilinogen Normalmg/dL (NORMAL) Urine Leukocyte Esterase Negative (NEGATIVE) Urine RBC 0-2/hpf (0-2) Urine WBC 0-5/hpf (0-5) Urine Epithelial Cells Few/hpf (NONE-MOD) Urine Crystals None seen (NONE SEEN) Urine Bacteria Few/hpf (NONE-FEW) Urine Hyaline Casts None/lpf (NONE) Urine Granular Casts None seen (NONE SEEN) Urine Waxy Casts None seen (NONE SEEN) Urine Red Blood Cell Casts None seen (NONE SEEN) Urine White Blood Cell Casts None seen (NONE SEEN) Urine Mucus None seen (None Seen) Urine Trichomonas None seen (NONE SEEN) Urine Yeast None (NONE SEEN) Urinalysis Comment None Test 10/25/16 06:06 White Blood Count 5.9th/mm3 (3.8-10.1) Red Blood Count 4.52mil/mm3 (3.90-5.20) Hemoglobin 13.8g/dL (12.0-15.6) Hematocrit 41.9% (35.0-46.0) Mean Corpuscular Volume 92.7fL (81-100) Mean Corpuscular Hemoglobin 30.5pg (27.0-35.0) Mean Corpuscular Hemoglobin Concent 32.9% (32.0-37.0) Red Cell Distribution Width 13.6% (12.3-15.4) Platelet Count 161bil/L (150-400) Neutrophils (%) (Auto) 57.7% (40-74) Lymphocytes (%) (Auto) 29.2% (14-46) Monocytes (%) (Auto) 9.9% (4-12) Eosinophils (%) (Auto) 2.7% (0-5) Basophils (%) (Auto) 0.5% (0-3) Sodium Level 138mEq/L (134-144) Potassium Level 4.5mEq/L (3.5-5.2) Chloride Level 102mEq/L (97-108) Carbon Dioxide Level 24mmol/L (18-29) Blood Urea Nitrogen 13mg/dL (8-27) Creatinine 0.68mg/dL (0.57-1.00) Estimat Glomerular Filtration Rate 118mL/min (>59) Glucose Level 107mg/dL (60-99) Calcium Level 8.7mg/dL (8.5-10.1) Magnesium Level 1.9mg/dL (1.6-2.6) Total Bilirubin 0.5mg/dL (0.0-1.2) Aspartate Amino Transf (AST/SGOT) 18U/L (0-50) Alanine Aminotransferase (ALT/SGPT) 12U/L (0-32) Alkaline Phosphatase 61U/L (25-165) Total Protein 6.2g/dL (6.4-8.4) Albumin 3.9g/dL (3.4-5.0) Discharge Medications Discharge Medications Calcium Citrate (Calcium Citrate) 250 Mg Tablet 1,000 MG PO DAILY (Reported) Cholecalciferol (Vitamin D3) (Vitamin D3) 2,000 Unit Capsule 2,000 UNIT PO DAILY (Reported) Multivitamin (Once Daily) 1 Each Tablet 1 EACH PO DAILY (Reported) As needed diphenhydrAMINE HCl (Benadryl) 25 Mg Capsule 25 MG PO HS PRN PRN (Reported) oxyCODONE-Acetaminophen 5-325 mg (oxyCODONE-Acetaminophen 5-325 mg) 1 Each Tablet 1 TAB PO Q6H PRN PRN For Pain Prescribed by: MOMO HESTER MD Followup Plan Disposition: Home Discharge Diet: No restrictions Discharge Activity: Limited until seen by PCP Patient Instructions You were hospitalized due to mechanical fall. You have sustained left sided 8- 10th rib fracture. Please continue pain medications and using incentive spirometry as instructed. You also had abnormal EKG and emergency room. Echocardiogram and stress test unremarkable. Please follow-up with PCP in 1-2 weeks. Follow-up Provider: Yuniel Garcia MD Follow-up with PCP in: 2 weeks copies to: Yuniel Garcia MD, Melaku MD Oct 25, 2016 16:13
--- NOTE | 2016-10-25 20:31 | DRSVH ---
PROCEDURE: 1 DAY PHARMACOLOGICAL STRESS TEST INDICATIONS: DYSRYTHMIA COMPARISON: None. Radiopharmaceutical: Rest dose 7.17 mCi of technetium 99m tetrofosmin Stress dose 24.6 mCi of technetium 99 tetrofosmin Patient presentation: 81 year-old woman with syncope. FINDINGS: Pharmacologic stress test: Following informed consent Lexiscan was injected per protocol. Patient dev eloped rate-related left bundle branch block and occasional PVCs. Resting EKG shows LVH; otherwise no rmal. There were no significant ST segment changes. Raw data: Normal myocardial tracer uptake. Lung heart ratio is normal. Quantitative gated SPECT: at peak stress ejection fraction is 88%. Rest ejection fraction is 84%. No focal wall motion abnormalities. Myocardial perfusion imaging: No evidence of ischemia or prior infarct. IMPRESSION: Reassuring pharmacologic stress test with myocardial perfusion imaging. No ischemia or prior infarct. Normal wall motion left ventricular systolic function. Dictated by: Elsa Loving M.D. on 10/25/2016 at 20:27 Approved by: Elsa Loving M.D. on 10/25/2016 at 20:30
== END 2016-10-25 15:45 | disposition home or self-care (01) ==
LOC: SED 10:53 → MPC 13:16 → INTOOBSV 13:16
PROVIDERS: ADMIT Internal Medicine; ATTEND Internal Medicine
DX: S22.42XA Multiple fractures of ribs, left side, initial encounter for closed fracture (principal); S27.9XXA Injury of unspecified intrathoracic organ, initial encounter; R94.31 Abnormal electrocardiogram [ECG] [EKG]; I44.7 Left bundle-branch block, unspecified; I10 Essential (primary) hypertension; I35.0 Nonrheumatic aortic (valve) stenosis; M51.36 Other intervertebral disc degeneration, lumbar region; W18.30XA Fall on same level, unspecified, initial encounter; Y93.9 Activity, unspecified; Y92.89 Other specified places as the place of occurrence of the external cause; Y99.9 Unspecified external cause status; Z79.899 Other long term (current) drug therapy